=== PATIENT | male | born 1985 | race American Indian/Alaskan Native ===

== ENCOUNTER 2020-04-02 00:42 | Emergency (ER) | payer OTHER ==
[2020-04-02 01:04] VITALS: BP 149/90
[2020-04-02] MEDS ORDERED: LIDOCAINE-MPF (1%) 10 MG/1 ML VIAL 5 ML ONE (01:22)
[2020-04-02] MEDS ORDERED: IBUPROFEN 600 MG TAB PO ONE (01:37)
--- NOTE | 2020-04-02 01:42 | Emergency Department Report ---
ED General Adult HPI - General Chief complaint: Earache Stated complaint: RT EAR PAIN Source: patient Mode of arrival: Ambulatory Limitations: No Limitations - History of Present Illness Initial comments: Patient is a 34-year-old -[place] male with no past medical history presents to the ED with complaint of acute onset severe right ear pain after an insect entered into his right ear about 1 hour ago. Patient states that the pain gets worse when the insect moves in the right ear causing more severe pain. Patient denies dizziness, fever or chills, hearing loss, shortness of breath, headache, bleeding, nausea and vomiting or cough, shortness of breath and sore throat. MD Complaint: foreign body in right ear -: Sudden, hour(s) (1) Location: face (right ear) Radiation: non-radiation Severity scale (0 -10): 9 Quality: aching, sharp Consistency: constant Improves with: none Worsens with: none Associated Symptoms: denies other symptoms. denies: confusion, chest pain, cough, diaphoresis, fever/chills, headaches, loss of appetite, malaise, nausea/vomiting, rash, seizure, shortness of breath, syncope, weakness Treatments Prior to Arrival: none - Related Data Previous Rx's Medication Instructions Recorded Last Taken Type Ciprofloxacin HCl/Dexameth 1 drop OTIC BID #7.5 ml 04/02/20 Unknown Rx [Ciprodex Otic Suspension] Ibuprofen [Motrin] 600 mg PO Q8H PRN #20 tablet 04/02/20 Unknown Rx Allergies Allergy/AdvReac Type Severity Reaction Status Date / Time No Known Allergies Allergy Verified 04/02/20 01:27 ED Review of Systems ROS: Stated complaint: RT EAR PAIN Other details as noted in HPI Constitutional: denies: chills, fever Eyes: denies: eye pain, eye discharge, vision change ENT: ear pain (right ear pain due to foreign body), other (Foreign body in right ear). denies: throat pain Respiratory: denies: cough, shortness of breath, wheezing Cardiovascular: denies: chest pain, palpitations Endocrine: no symptoms reported Gastrointestinal: denies: abdominal pain, nausea, diarrhea Genitourinary: denies: urgency, dysuria Musculoskeletal: denies: back pain, joint swelling, arthralgia Skin: denies: rash, lesions Neurological: denies: headache, weakness, paresthesias Psychiatric: denies: anxiety, depression Hematological/Lymphatic: denies: easy bleeding, easy bruising ED Past Medical Hx - Past Medical History Hx Diabetes: Yes - Surgical History Past Surgical History?: No - Social History Smoking Status: Never Smoker Substance Use Type: Marijuana - Medications Home Medications: Home Medications Medication Instructions Recorded Confirmed Last Taken Type Ciprofloxacin HCl/Dexameth 1 drop OTIC BID #7.5 ml 04/02/20 Unknown Rx [Ciprodex Otic Suspension] Ibuprofen [Motrin] 600 mg PO Q8H PRN #20 tablet 04/02/20 Unknown Rx ED Physical Exam - General Limitations: No Limitations General appearance: alert, in no apparent distress - Head Head exam: Present: atraumatic, normocephalic, normal inspection - Eye Eye exam: Present: normal appearance, PERRL Pupils: Present: normal accommodation - ENT ENT exam: Present: normal exam, normal orophraynx, mucous membranes moist, other (Live insect in the right ear) - Neck Neck exam: Present: normal inspection, full ROM. Absent: tenderness, lymphadenopathy - Respiratory Respiratory exam: Present: normal lung sounds bilaterally. Absent: respiratory distress, wheezes, rales, rhonchi, chest wall tenderness, accessory muscle use, decreased breath sounds, prolonged expiratory - Cardiovascular Cardiovascular Exam: Present: regular rate, normal rhythm, normal heart sounds. Absent: systolic murmur, diastolic murmur, rubs, gallop - GI/Abdominal GI/Abdominal exam: Present: soft, normal bowel sounds. Absent: tenderness, guarding - Extremities Exam Extremities exam: Present: normal inspection, full ROM, normal capillary refill - Back Exam Back exam: Present: normal inspection, full ROM. Absent: tenderness, muscle spasm, paraspinal tenderness - Neurological Exam Neurological exam: Present: alert, oriented X3, CN II-XII intact, normal gait, reflexes normal - Psychiatric Psychiatric exam: Present: normal affect, normal mood, anxious - Skin Skin exam: Present: warm, dry, intact, normal color. Absent: rash ED Course Vital Signs 04/02/20 01:02 Temperature 98.1 F Pulse Rate 98 H Respiratory 18 Rate Blood Pressure 149/90 O2 Sat by Pulse 94 Oximetry - Foreign Body Removal Ear Location: ear canal (R) Foreign Body Suspected: insect If Insect Suspected: ear canal instilled w/ ot (Normal saline solution flush) Foreign Body Removed: yes Foreign Body Removal Technique: forceps Tympanic Membrane Intact: Yes Patient Tolerated Procedure: well, no complications Complications: pain ED Medical Decision Making - Medical Decision Making This is a 34-year-old -[place] male with no past medical history presents to the ED with complaint of acute onset severe right ear pain after an insect entered into his right ear about 1 hour ago. Patient states that the pain gets worse when the insect moves in the right ear causing more severe pain. In the ED, patient is alert and oriented x3, dramatic, anxious and unc ooperative during the physical exam. Patient was treated for pain and lidocaine 1% solution drops were added to the patient's right ear. The right ear was flushed with normal saline to remove the insect trapped in the right ear canal. After multiple attempts, the insect was removed from the right ear successfully. On reevaluation after the successful removal of the insect, the ear canal and the tympanic membrane were erythematous and irritated. On reevaluation, patient felt better the pain resolved and the patient was discharged home on medications including antibiotic eardrops. Patient was advised to follow-up with his primary care physician in 5 to 7 days for reevaluation or return to the ED immediately if symptoms get worse. - Differential Diagnosis Foreign body right ear; Otitis media; Otitis externa; ear injury Critical care attestation.: If time is entered above; I have spent that time in minutes in the direct care of this critically ill patient, excluding procedure time. ED Disposition Clinical Impression: Acute pain of right ear, Foreign body in right ear, initial encounter Disposition: TO HOME OR SELFCARE Is pt being admited?: No Does the pt Need Aspirin: No Condition: Stable Instructions: Ear Foreign Body (ED), Earache (ED) Additional Instructions: Take medication as needed for pain, apply the eardrops to the affected ear as advised. Follow-up with your primary care physician in 3 to 5 days for reevaluation or return to the ED immediately if symptoms get worse. Prescriptions: Ciprofloxacin HCl/Dexameth [Ciprodex Otic Suspension] 1 drop OTIC BID #7.5 ml Ibuprofen [Motrin] 600 mg PO Q8H PRN #20 tablet PRN Reason: Pain Referrals: ADENIKE RAMIREZ MD [Staff Physician] - 3-5 Days Forms: Work/School Release Form(ED) Time of Disposition: 01:40 Print Language: MONGOLIAN
== END 2020-04-02 01:55 | disposition home or self-care (01) ==
LOC: ED 00:42
DX: T16.1XXA Foreign body in right ear, initial encounter (principal); Z79.899 Other long term (current) drug therapy; W45.8XXA Other foreign body or object entering through skin, initial encounter; Y93.89 Activity, other specified; Y92.89 Other specified places as the place of occurrence of the external cause; Y99.8 Other external cause status
CPT/HCPCS: 99282